=== PATIENT | male | born 1985 | race African-American/Black ===

== ENCOUNTER 2016-10-13 17:52 | Emergency (ER) | payer MEDICAID ==
[~2016-10-13] VITALS: Ht 175.3 cm; Wt 77.1 kg
[2016-10-13] MEDS ORDERED: NKM (18:01)
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
[2016-10-13] MEDS ORDERED: Ketorolac 60mg Inj IM ONE (18:15)
[2016-10-13] MEDS ORDERED: Norco 10mg/325mg tab ORAL ONE (19:15)
[2016-10-13 19:36] VITALS: BP 143/67
[2016-10-13] MEDS ORDERED: NORCO 10-325 T1 EACH ORAL (19:48)
[2016-10-13] MEDS ORDERED: IBUPROFEN600 MG ORAL (19:48)
[2016-10-13 20:02] VITALS: BP 143/67
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
--- NOTE | 2016-10-14 13:43 | Cardiology Report ---
APPROVED REPORT EKG Measurement Heart [id number] Normal sinus rhythm with sinus arrhythmia Normal ECG
== END 2016-10-13 20:05 | disposition home or self-care (01) ==
LOC: EMR 18:29
DX: S22.42XA Multiple fractures of ribs, left side, initial encounter for closed fracture (principal); R91.1 Solitary pulmonary nodule; V43.62XA Car passenger injured in collision with other type car in traffic accident, initial encounter; Y93.9 Activity, unspecified; Y92.410 Unspecified street and highway as the place of occurrence of the external cause
CPT/HCPCS: 71250; 93005; 96372; 99284

== ENCOUNTER 2017-05-10 06:10 | Emergency (ER) | payer MEDICAID ==
[~2017-05-10] VITALS: Ht 175.3 cm; Wt 79.4 kg
[~2017-05-10 06:10] MED LIST: IBUPROFEN600 MG ORAL; NKM; NORCO 10-325 T1 EACH ORAL
[2017-05-10 06:32] VITALS: BP 131/69
--- NOTE | 2017-05-10 06:42 | Emergency Room Report ---
History of Present Illness General Chief Complaint: Skin Rash/Abscess Source: Patient, Significant Other Present Illness HPI The patient presents with 4 days of swelling and increased pain in the right buttock area. There is a slight amount of drainage. He has been using a warm pack. The pain radiates around to his groin area also. He took 600 mg Motrin which hasn't helped the pain. Pain 10/10, burning and pressure. No fevers, chills, NVD, dysuria. Never with abscess. No h/o diabetes. Allergies: Coded Allergies: No Known Allergies (Unverified , 10/13/16) Patient History Past Medical History: see triage record Social History: Denies: smoking Social History Narrative With significant other Reviewed Nursing Documentation: PMH: Agreed, PSxH: Agreed Nursing Documentation-PMH Hx Asthma: Yes Review of Systems All Other Systems: negative except mentioned in HPI Physical Exam Vital Signs Date Time Temp Pulse Resp B/P (MAP) Pulse Ox O2 Delivery O2 Flow Rate FiO2 05/10/17 06:25 97.9 103 20 131/69 96 Room Air Sp02 EP Interpretation: reviewed, normal General Appearance: well appearing, no apparent distress Head: normocephalic, atraumatic Eyes: bilateral eye normal inspection, bilateral eye PERRL ENT: hearing grossly normal, normal voice, moist mucus membranes Neck: full range of motion, supple Respiratory: no respiratory distress, speaking full sentences Cardiovascular #1: regular rate, rhythm Musculoskeletal: digits/nails normal, gait/station normal, normal range of motion Neurologic: alert, normal gait, grossly normal Psychiatric: mood/affect normal Skin: other - Abscess right medial buttock area. No drainage on the underwear. There is some fluctuance but is fairly deep. Procedures Incision and Drainage Incision and Drainage : Consent: Verbal Blade Size: 11 I & D Procedure: betadine prep, sterile drapes applied, sterile dressing applied, gauze wick placed Wound Location: other - buttock Wound's Depth, Shape: into muscle Wound Explored: contaminated - expressed thick pus and irrigated NS Anesthesia: Lidocaine w/ Epi Volume Anesthetic (ccs): 5 Patient Tolerated: Well Complications: None Medical Decision Making Diagnostic Impression: Primary Impression: Abscess Additional Impression: Encounter for incision and drainage procedure ER Course The patient presents with an abscess that needs to be incised and drained. In addition to that he has pain and will be treated with Percocet. Antibiotics will be started treating him with Bactrim at this time. The patient underwent incision and drainage. Tolerated it well appeared was irrigated and packed. The patient will need to return to have the packing removed. Patient stable for outpatient observation and treatment. Last Vital Signs Date Time Temp Pulse Resp B/P (MAP) Pulse Ox O2 Delivery O2 Flow Rate FiO2 05/10/17 07:17 97.9 103 20 131/69 96 Room Air Status: improved Disposition: HOME, SELF-CARE Condition: Improved Scripts Bacitracin (Bacitracin) 28.4 Gm Oint...g. 1 APPLIC TOPIC BID, #10 GM Prov: Kulwant Chowdary M.D. 05/10/17 Trimethoprim/Sulfamethoxazole 160/800* (BACTRIM DS TABLET*) 1 Each Tablet 1 TAB ORAL Q12H, #14 TAB 0 Refills Prov: Kulwant Chowdary M.D. 05/10/17 Hydrocodone Bit/Acetaminophen 5-325* (NORCO 5-325*) 1 Each Tablet 1 TAB ORAL Q6H Y for For Pain, #10 TAB 0 Refills Prov: Kulwant Chowdary M.D. 05/10/17 Kulwant Chowdary M.D. May 10, 2017 06:42
[2017-05-10] MEDS ORDERED: oxyCODONE HCL/Acetaminophen 5/325mg ORAL ONE (06:45)
[2017-05-10] MEDS ORDERED: Bactrim DS (160mg/800mg) tab ORAL ONE (06:45)
[2017-05-10] MEDS ORDERED: Lidocaine 1% 10mg/ml/Epi 0.005mg/ml 30ml vial INJ ONE (06:45)
[2017-05-10] MEDS ORDERED: NORCO 5-325 TA1 EACH ORAL (07:13)
[2017-05-10] MEDS ORDERED: BACTRIM DS TAB1 EAC1 ORAL (07:13)
[2017-05-10] MEDS ORDERED: BACITRACIN15 GM TOPIC (07:13)
[2017-05-10 07:17] VITALS: BP 131/69
== END 2017-05-10 07:19 | disposition home or self-care (01) ==
LOC: EMR 06:45
DX: L02.31 Cutaneous abscess of buttock (principal); R21 Rash and other nonspecific skin eruption
CPT/HCPCS: 10060; 99284

== ENCOUNTER 2018-07-30 19:25 | Emergency (ER) | payer MEDICAID ==
[~2018-07-30] VITALS: Ht 177.8 cm; Wt 79.4 kg
[~2018-07-30 19:25] MED LIST changes: +BACITRACIN15 GM TOPIC; +BACTRIM DS TAB1 EAC1 ORAL; +NORCO 5-325 TA1 EACH ORAL
[2018-07-30 20:07] VITALS: BP 140/79
--- NOTE | 2018-07-30 20:12 | NUR ---
ER Nurse Note: Pt came from home c/o oral trauma after falling off skateboard 1700. Upon assessment, pt right uppper lip open; dry blood; and 10/10 pain. No active bleeding; site swollen. Pt a&ox4, VSS, no signs of distress. Will continue to montior.
[2018-07-30] MEDS ORDERED: Morphine Sulfate 4mg/ml Inj (IV/IM USE ONLY) IM ONE (21:15)
[2018-07-30] MEDS ORDERED: Bacitracin Oint UD TOPIC ONE (22:30)
--- NOTE | 2018-07-30 22:34 | Emergency Room Report ---
History of Present Illness General Chief Complaint: Multiple Trauma/Fall Source: Patient Present Illness HPI 33-year-old male presents to the emergency department complaining of 10 out of 10 in severity localized pain to the right upper lip 2 hours. Patient reports that he fell while skateboarding and landed on the ground face first. Patient denies dental pain or jaw pain. Patient reports lip laceration he denies loss of consciousness patient denies midline neck or back pain.Denies numbness tingling or loss of sensation or gross motor movements of the extremities, incontinence of bowel or bladder. Denies CP, Palpitations, LOC, AMS, dizziness, Changes in Vision, weakness or a sudden severe headache. He states that he is up-to-date with tetanus vaccinations any denies taking blood thinning medications. Allergies: Coded Allergies: No Known Allergies (Unverified , 10/13/16) Patient History Past Medical History: see triage record Past Surgical History: none Pertinent Family History: none Immunizations: UTD Reviewed Nursing Documentation: PMH: Agreed; PSxH: Agreed Nursing Documentation-PMH Past Medical History: No History, Except For Hx Asthma: Yes Review of Systems All Other Systems: negative except mentioned in HPI Physical Exam Vital Signs Date Time Temp Pulse Resp B/P (MAP) Pulse Ox O2 Delivery O2 Flow Rate FiO2 07/30/18 19:36 97.7 90 16 140/79 97 Room Air Sp02 EP Interpretation: reviewed, normal General Appearance: no apparent distress, alert, GCS 15, non-toxic Head: normocephalic, other - lip laceration: 3.5 cm right upper lip extending into oral mucosa, does not involve the ricardo border. Eyes: bilateral eye normal inspection, bilateral eye PERRL ENT: hearing grossly normal, normal voice, other - small closed chip in the Right upper incisor. No teeth are palpable loose. Neck: full range of motion Respiratory: chest non-tender, lungs clear, normal breath sounds, speaking full sentences Cardiovascular #1: regular rate, rhythm Musculoskeletal: back normal, gait/station normal, normal range of motion, non- tender - no bony ttp, only ST ttp of the right upper lip. Neurologic: alert, oriented x3, responsive, motor strength/tone normal, sensory intact, speech normal, grossly normal Psychiatric: judgement/insight normal Skin: normal color, no rash, warm/dry, well hydrated, laceration - lip laceration: 3.5 cm right upper lip extending into oral mucosa, does not involve the ricardo border. Lymphatic: no adenopathy Procedures Laceration/Wound Repair Laceration/Wound Repair : Consent: Verbal Wound Location: face - right side upper lip Wound's Depth, Shape: flap Wound Length (cm): 3 Wound Explored: clean Irrigated w/ Saline (ccs): 500 Anesthesia: Lidocaine w/ Epi Volume Anesthetic (ccs): 2 Wound Debrided: minimal Wound Repaired With: sutures Suture Size/Type: 5:0, other - Gut- dissolving Number of Sutures: 7 Sterile Dressing Applied?: No Splint Applied?: No Sling Applied?: No Patient Tolerated: Well Complications: None Medical Decision Making PA Attestation Dr. galindo is my supervising Physician whom patient management has been discussed with. Diagnostic Impression: Primary Impression: Lip laceration Qualified Codes: S01.511A - Laceration without foreign body of lip, initial encounter Additional Impression: Chipped tooth Qualified Codes: S02.5XXA - Fracture of tooth (traumatic), initial encounter for closed fracture ER Course 33-year-old male presents to the emergency department complaining of 10 out of 10 in severity localized pain to the right upper lip 2 hours. Patient reports that he fell while skateboarding and landed on the ground face first. Patient denies dental pain or jaw pain. Patient reports lip laceration he denies loss of consciousness patient denies midline neck or back pain.Denies numbness tingling or loss of sensation or gross motor movements of the extremities, incontinence of bowel or bladder. Denies CP, Palpitations, LOC, AMS, dizziness, Changes in Vision, weakness or a sudden severe headache. He states that he is up-to-date with tetanus vaccinations any denies taking blood thinning medications. Ddx considered but are not limited to laceration, tendon injury, cellulitis, amputation Vital signs: are WNL, pt. is afebrile H&PE are most consistent with: lip laceration: 3.5 cm right upper lip extending into oral mucosa, does not involve the ricardo border. ORDERS: none required at this time, the diagnosis is clinical ED INTERVENTIONS: . - The wound was copiously irrigated with normal saline, and explored for foreign body for which no FB was found. - pt. is anesthetized with 1%lidocaine w. epi. - The wound was approximated and closed using 7 dissolving chromic gut sutures in size 5.0 -Bacitracin is applied Discussed with patient: That we make every effort to approximate the laceration as best as we can so that scarring will be as cosmetically pleasing as possible with our limited cosmetic skill set in the Emergency dept. Regardless of our best efforts there will be scarring after laceration repair. The extent of scarring is unknown at this time. DISCHARGE: At this time pt. is stable for d/c to home. Will provide printed patient care instructions, and any necessary prescriptions. Care plan and follow up instructions have been discussed with the patient prior to discharge. Last Vital Signs Date Time Temp Pulse Resp B/P (MAP) Pulse Ox O2 Delivery O2 Flow Rate FiO2 07/30/18 20:07 97.7 90 16 140/79 97 Room Air Disposition: HOME, SELF-CARE Condition: Stable Scripts Amoxicillin/Potassium Clav 875-125* (AUGMENTIN 875-125 TABLET*) 1 Each Tablet 1 TAB ORAL TWICE A DAY for 7 Days, #14 TAB Prov: Betina Rand 07/30/18 Ibuprofen* (MOTRIN*) 600 Mg Tablet 600 MG ORAL THREE TIMES A DAY, #30 TAB 0 Refills Prov: Betina Rand 07/30/18 Bacitracin/Polymyxin B Sulfate (BACITRACIN-POLYMYXIN OINTMENT) 28.35 Gm Oint...g. 1 APPLIC TP BID, #28.3 GM Prov: Betina Rand 07/30/18 Referrals: [facility] (PCP) Departure Forms: Return to Work Return to Work Date: Aug 03, 2018 Work Restrictions: None Other Restrictions: May return Sooner if Symptoms have resolved. Return to Full Activity: Aug 03, 2018 Patient Instructions: Mouth Laceration, [id number] Additional Instructions: Take medications as directed. SUTURES WILL DISSOLVE AND FALL OFF ON THEIR OWN Follow up with a Primary Care Provider in 3-5 days, even if your symptoms have resolved. --Please review list of primary care clinics, if you do not already have a primary care provider Return sooner to ED if new symptoms occur, or current symptoms become worse. - Please note that this Emergency Department Report was dictated using [employer] technology software, occasionally this can lead to erroneous entry secondary to interpretation by the dictation equipment. Betina Rand Jul 30, 2018 22:34
[2018-07-30] MEDS ORDERED: BACITRACIN-P28.35 GM TP (22:35)
[2018-07-30] MEDS ORDERED: IBUPROFEN600 MG ORAL (22:35)
[2018-07-30] MEDS ORDERED: AUGMENTIN 875-1 EAC1 ORAL (22:36)
[2018-07-30 23:00] VITALS: BP 136/82
--- NOTE | 2018-07-30 23:00 | NUR ---
ER Nurse Note: Pt seen, treated, medically cleared for discharge by ERMD. All orders completed per ERMD orders. Discharge instructions and prescriptions given with repeat verbalization by pt. Instructed pt to follow up with primary care physican within one week. Pt a&ox4, VSS, no signs of distress. Sutures cleaned, applied bacitracin, no signs of infection. ID band removed; left with steady gait via own transportation.
== END 2018-07-30 23:00 | disposition home or self-care (01) ==
LOC: EMR 20:57
DX: S01.511A Laceration without foreign body of lip, initial encounter (principal); S02.5XXA Fracture of tooth (traumatic), initial encounter for closed fracture; W19.XXXA Unspecified fall, initial encounter; Y93.51 Activity, roller skating (inline) and skateboarding; Y92.89 Other specified places as the place of occurrence of the external cause
CPT/HCPCS: 12013; 96372; 99283; J2270; Z7502

== ENCOUNTER 2019-02-03 21:01 | Emergency (ER) | payer MEDICAID ==
[~2019-02-03] VITALS: Ht 177.8 cm; Wt 79.4 kg
[~2019-02-03 21:01] MED LIST changes: +AUGMENTIN 875-1 EAC1 ORAL; +BACITRACIN-P28.35 GM TP
--- NOTE | 2019-02-03 21:20 | NUR ---
ED Nurse Note: PT WALKED IN C/O ASTHMA ATTACK AND N/V SINCE LAST NIGHT, PT REPORTS HE USED INHALER AT HOME. AO4 NAD. VSS
[2019-02-03 21:23] VITALS: BP 137/65
--- NOTE | 2019-02-03 21:42 | Emergency Room Report ---
History of Present Illness General Chief Complaint: Asthma Source: Patient, Medical Record Present Illness HPI Patient is a 33-year-old male presented after increased cough and difficulty with respirations. He reports having prior history of asthma. He states that he has been having some increased difficulty with air movement. He reports smoking marijuana. He had some sick contacts at home with upper respiratory infection. He denies any fever. He reports having some episodes of vomiting after cough. He denies any chest discomfort. He denies any leg pain or swelling. Allergies: Coded Allergies: No Known Allergies (Unverified , 10/13/16) Nursing Documentation-H Hx Asthma: Yes Review of Systems All Other Systems: negative except mentioned in HPI Physical Exam Vital Signs Date Time Temp Pulse Resp B/P (MAP) Pulse Ox O2 Delivery O2 Flow Rate FiO2 02/03/19 21:15 97.9 87 18 137/65 (89) 99 Room Air General Appearance: well appearing, no apparent distress, alert, GCS 15, non- toxic Head: normocephalic, atraumatic ENT: hearing grossly normal, normal voice, other - rhinorrhea Neck: full range of motion, supple Respiratory: no respiratory distress, speaking full sentences Cardiovascular #1: normal inspection Gastrointestinal: normal inspection, normal bowel sounds, non tender, soft Musculoskeletal: normal inspection, no calf tenderness Neurologic: normal gait Psychiatric: mood/affect normal Skin: no rash Medical Decision Making Diagnostic Impression: Primary Impression: Asthma exacerbation ER Course Patient presented for cough and difficulty breathing. Differential diagnosis include was not limited to asthma exacerbation, pneumonia, reflux, viral infection among others. Patient has a benign exam and does not appear to require any further imaging or laboratory testing at this time. Patient was noted to have prior history of asthma. He had run out of his asthma medications. He was given oral prednisone as well as breathing treatment. Patient stated he felt better want to go home. Patient was given prescription for steroids as well as albuterol inhaler. He is also given prescription for Zofran to do some nausea. Patient does not appear to have any evidence of acute toxicity. He appears to have some viral respiratory infection. Patient is advised to return if he had any worsening condition or other concerns. Chest X-Ray Diagnostic Results Chest X-Ray Diagnostic Results : Chest X-Ray Ordered: Yes # of Views/Limited/Complete: 1 View Indication: Shortness of Breath EP Interpretation: Yes Interpretation: no consolidation, no effusion, no pneumothorax, no acute cardiopulmonary disease Impression: No acute disease Electronically Signed by: Electronically signed by Dr. Dale Lewis M.D. Last Vital Signs Date Time Temp Pulse Resp B/P (MAP) Pulse Ox O2 Delivery O2 Flow Rate FiO2 02/03/19 21:23 97.9 85 18 137/65 99 Room Air Status: improved Disposition: HOME, SELF-CARE Condition: Stable Scripts Ondansetron Odt* (ZOFRAN ODT*) 4 Mg Tab.rapdis 4 MG BC EVERY 6 HOURS PRN for Nausea & Vomiting, #10 TAB 0 Refills Prov: Dale Lewis MD 02/03/19 Albuterol Sulfate* (ALBUTEROL SULFATE MDI*) 8.5 Gm Hfa.aer.ad 2 PUFF INH Q6H, #1 EA 0 Refills Prov: Dale Lewis MD 02/03/19 Prednisone* (PREDNISONE*) 20 Mg Tablet 40 MG ORAL DAILY, #10 TAB Prov: Dale Lewis MD 02/03/19 Dale Lewis MD Feb 03, 2019 21:42
[2019-02-03] MEDS ORDERED: Albuterol/Ipratropium 3ml neb HHN ONE (21:45)
[2019-02-03] MEDS ORDERED: ONDANSETRON ODT4 MG BC (22:23)
[2019-02-03] MEDS ORDERED: ALBUTEROL SULF8.5 GM INH (22:23)
[2019-02-03] MEDS ORDERED: PREDNISONE20 MG ORAL (22:23)
[2019-02-03 22:30] VITALS: BP 137/65
--- NOTE | 2019-02-03 22:30 | NUR ---
ER DISCHARGE NOTE: Patient is cleared to be discharged per ERMD, pt is aox4, on room air, with stable vital signs. accompanied by family member. pt was given dc and prescription instructions, pt was able to verbalize understanding, pt id band REMOVED. pt is able to ambulate with steady gait. pt took all belongings.
--- NOTE | 2019-02-04 11:12 | Diagnostic Imaging Report ---
Indication: Dyspnea Comparison: None A single view chest radiograph was obtained. Findings: Cardiomediastinal appearance is within normal limits for age. The lungs are clear. Pulmonary vascularity is appropriate. The diaphragmatic contour is smooth and costophrenic angles are sharp. No pleural effusions are identified. The bones are unremarkable. Impression: No acute findings
== END 2019-02-03 22:30 | disposition home or self-care (01) ==
LOC: EMR 22:30
DX: J45.901 Unspecified asthma with (acute) exacerbation (principal); F12.90 Cannabis use, unspecified, uncomplicated; R11.10 Vomiting, unspecified
CPT/HCPCS: 71045; 94640; 99284; J7512; J7620